=== PATIENT | male | born 1965 | race Two or more races ===

== ENCOUNTER 2017-05-13 16:54 | Emergency (ER) | payer SELFPAY ==
[2017-05-13 17:05] VITALS: BP 141/91
[2017-05-13] MEDS ORDERED: ONDANSETRON 4 MG TAB.RAPDIS PO ONE (17:52)
[2017-05-13] MEDS ORDERED: OXYCODONE-ACETAMINOPHEN 5-325 MG TABLET PO ONE (17:52)
--- NOTE | 2017-05-13 18:24 | RADIOLOGY REPORT (SQ) ---
EXAM DESCRIPTION: CT ABD/PELVIS NO ORAL OR IV COMPLETED DATE/TIME: 05/13/2017 6:06 pm REASON FOR STUDY: inguinal pain, L>R COMPARISON: None. TECHNIQUE: CT scan of the abdomen and pelvis performed without intravenous or oral contrast. Images reviewed with lung, soft tissue, and bone windows. Reconstructed coronal and sagittal MPR images revi ewed. All images stored on PACS. All CT scanners at this facility use dose modulation, iterative reconstruction, and/or weight based d osing when appropriate to reduce radiation dose to as low as reasonably achievable (ALARA). [facility]: Dose Right [facility]: CareDose [facility]: Dose Right [facility]: Teradose 4D [facility]: Smart Fluential RADIATION DOSE: CT Rad equipment meets quality standard of care and radiation dose reduction techniq ues were employed. CTDIvol: 11.3 mGy. DLP: 619 mGy-cm.mGy. LIMITATIONS: None. FINDINGS: LOWER CHEST: No significant findings. No nodules or infiltrates. NON-CONTRASTED LIVER, SPLEEN, ADRENALS: Evaluation limited by lack of IV contrast. No identified sign ificant masses. PANCREAS: No masses. No peripancreatic inflammatory changes. GALLBLADDER: No identified stones by CT criteria. No inflammatory changes to suggest cholecystitis. RIGHT KIDNEY AND URETER: No suspicious masses. Assessment limited by lack of IV contrast. No signif icant calcifications. No hydronephrosis or hydroureter. LEFT KIDNEY AND URETER: No suspicious masses. Assessment limited by lack of IV contrast. No signifi cant calcifications. No hydronephrosis or hydroureter. AORTA AND RETROPERITONEUM: No aneurysm. No retroperitoneal masses or adenopathy. BOWEL AND PERITONEAL CAVITY: Diverticuli in the ascending colon. No obvious masses or inflammatory c hanges. No free fluid. APPENDIX: Normal. PELVIS, BLADDER, AND ABDOMINAL WALL:No abnormal masses. No free fluid. Bladder normal. BONES: No significant findings. OTHER: No other significant finding. IMPRESSION: DIVERTICULI IN THE ASCENDING COLON. NO CT FINDINGS OF ACUTE DIVERTICULITIS. NO OTHER S IGNIFICANT OR ACUTE PROCESS IN THE ABDOMEN OR PELVIS. COMMENT: Quality ID # [id number]: Final reports with documentation of one or more dose reduction techniques (e.g., Automated exposure control, adjustment of the mA and/or kV according to patient size, use of iterative reconstruction technique) TECHNICAL DOCUMENTATION: JOB ID: [id number] [employer]- All Rights Reserved
--- NOTE | 2017-05-13 18:51 | ER Document Report ---
ED GI/ - General TRAVEL OUTSIDE OF THE [place] IN LAST 30 DAYS: No <JESSIE WINSTON - Last Filed: 05/13/17 18:51> <CODY MCDANIEL - Last Filed: 05/13/17 20:11> - General Chief Complaint: Abdominal Pain Stated Complaint: ABDOMINAL PAIN Time Seen by Provider: 05/13/17 17:52 Notes: Patient is a 51-year-old male who comes in complaining of groin pain. Patient states that the pain started on the right in the area of his inguinal canal and now started on the left. 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 States that it started while he was at work. Denies any back pain. Denies nausea or vomiting. States that it feels like there is a bulge. No history of inguinal hernia repair as a child. No fever. No difficulty urinating. (CODY MCDANIEL) - Related Data Allergies/Adverse Reactions: No Known Allergies Allergy (Unverified 05/13/17 16:58) Past Medical History - Social History Smoking Status: Current Some Day Smoker Chew tobacco use (# tins/day): No Frequency of alcohol use: Social Drug Abuse: None Patient has suicidal ideation: No Patient has homicidal ideation: No Renal/ Medical History: Denies: Hx Peritoneal Dialysis <JESSIE WINSTON - Last Filed: 05/13/17 18:51> - Social History Family History: Reviewed & Not Pertinent - Medical History Medical History: Negative <CODY MCDANIEL - Last Filed: 05/13/17 20:11> Review of Systems - Review of Systems Constitutional: No symptoms reported EENT: No symptoms reported Cardiovascular: No symptoms reported Respiratory: No symptoms reported Gastrointestinal: See HPI Genitourinary: No symptoms reported Musculoskeletal: No symptoms reported Skin: No symptoms reported Hematologic/Lymphatic: No symptoms reported Neurological/Psychological: No symptoms reported <CODY MCDANIEL - Last Filed: 05/13/17 20:11> Physical Exam - Vital signs Interpretation: Normal - General General appearance: Appears well, Alert - HEENT Head: Normocephalic, Atraumatic Eyes: Normal Pupils: PERRL - Respiratory Respiratory status: No respiratory distress Chest status: Nontender Breath sounds: Normal Chest palpation: Normal - Cardiovascular Rhythm: Regular Heart sounds: Normal auscultation Murmur: No - Abdominal Inspection: Normal Distension: No distension Bowel sounds: Normal Tenderness: Tender, Other - Bilateral inguinal hernia Organomegaly: No organomegaly - Genitourinary Inspection: Normal Tenderness: Nontender Cremasteric reflex: Normal Scrotum: Normal. No: Swelling - Back Back: Normal, Nontender - Extremities General upper extremity: Normal inspection, Nontender, Normal color, Normal ROM , Normal temperature General lower extremity: Normal inspection, Nontender, Normal color, Normal ROM , Normal temperature, Normal weight bearing. No: Tristen's sign - Neurological Neuro grossly intact: Yes Cognition: Normal Orientation: AAOx4 James Coma Scale Eye Opening: Spontaneous James Coma Scale Verbal: Oriented James Coma Scale Motor: Obeys Commands [place] Coma Scale Total: 15 Speech: Normal Motor strength normal: LUE, RUE, LLE, RLE Sensory: Normal - Psychological Associated symptoms: Normal affect, Normal mood - Skin Skin Temperature: Warm Skin Moisture: Dry Skin Color: Normal <CODY MCDANIEL - Last Filed: 05/13/17 20:11> - Vital signs Vitals: Temp Pulse Resp BP Pulse Ox 98.5 F 83 16 141/91 H 98 05/13/17 17:03 05/13/17 17:03 05/13/17 17:03 05/13/17 17:03 05/13/17 17:03 Course <JESSIE WINSTON - Last Filed: 05/13/17 18:51> - Diagnostic Test Radiology reviewed: Reports reviewed <CODY MCDANIEL - Last Filed: 05/13/17 20:11> - Re-evaluation Re-evalutation: 05/13/17 20:10 No evidence for incarceration on exam or CT. Patient will be discharged home with pain medications. Nurse. He is to follow-up with surgery and avoid straining. Recommend jockstrap/tight underwear for comfort. (CODY MCDNAIEL) - Vital Signs Vital signs: Temp Pulse Resp BP Pulse Ox 98.5 F 85 16 141/91 H 98 05/13/17 17:04 05/13/17 17:04 05/13/17 17:03 05/13/17 17:04 05/13/17 17:04 Discharge <JESSIE WINSTON - Last Filed: 05/13/17 18:51> <CODY MCDANIEL - Last Filed: 05/13/17 20:11> - Discharge Clinical Impression: Inguinal hernia bilateral, non-recurrent Qualifiers: Obstruction and gangrene presence: without obstruction or gangrene Recurrence: not specified as recurrent Qualified Code(s): K40.20 - Bilateral inguinal hernia , without obstruction or gangrene, not specified as recurrent Condition: Stable Disposition: HOME, SELF-CARE Instructions: Hernia ([facility]) Prescriptions: Docusate Sodium [Colace 100 mg Capsule] 100 mg PO BID #60 capsule Oxycodone HCl/Acetaminophen [Percocet 5-325 mg Tablet] 1 - 2 tab PO Q4H PRN #20 tablet PRN Reason: Forms: Return to Work Referrals: JASMINE RAMIREZ MD [ACTIVE STAFF] - Follow up in 3-5 days Scribe Attestation: 05/13/17 20:10 I personally performed the services described in the documentation, reviewed and edited the documentation which was dictated to the scribe in my presence, and it accurately records my words and actions. (CODY MCDANIEL)
== END 2017-05-13 19:04 | disposition home or self-care (01) ==
LOC: ER 16:54
DX: K40.20 Bilateral inguinal hernia, without obstruction or gangrene, not specified as recurrent (principal); R10.30 Lower abdominal pain, unspecified; F17.200 Nicotine dependence, unspecified, uncomplicated
CPT/HCPCS: 99284; 74176; S0119

== ENCOUNTER 2017-05-23 19:46 | Emergency (ER) | payer SELFPAY ==
[2017-05-23 19:57] VITALS: BP 158/80
--- NOTE | 2017-05-23 20:49 | ER Document Report ---
ED Medical Screen (RME) - General Chief Complaint: Groin Pain Stated Complaint: GROIN PAIN Time Seen by Provider: 05/23/17 20:47 Notes: Patient states he been told that he has a right inguinal mass. He states it is hurting almost daily now and he needs treatment. He states he is not having vomiting or diarrhea. He can eat. There is no problems with urine or stool. Exam in the triage area is inadequate to rule out incarceration of intra- abdominal contents. TRAVEL OUTSIDE OF THE [place] IN LAST 30 DAYS: No - Related Data Allergies/Adverse Reactions: No Known Allergies Allergy (Unverified 05/13/17 16:58) Past Medical History - Social History Chew tobacco use (# tins/day): No Frequency of alcohol use: Occasional Drug Abuse: None Renal/ Medical History: Reports: Hx Peritoneal Dialysis Physical Exam - Vital signs Vitals: Temp Pulse Resp BP Pulse Ox 98.6 F 72 18 158/80 H 98 05/23/17 19:56 05/23/17 19:56 05/23/17 19:56 05/23/17 19:56 05/23/17 19:56 Course - Vital Signs Vital signs: Temp Pulse Resp BP Pulse Ox 98.6 F 72 18 158/80 H 98 05/23/17 19:56 05/23/17 19:56 05/23/17 19:56 05/23/17 19:56 05/23/17 19:56
[2017-05-23 21:16] LABS: ABSOLUTE BASOPHILS # (AUTO) 0.1 10^3/uL (0.0-0.2); ABSOLUTE EOSINOPHILS # (AUTO) 0.2 10^3/uL (0.0-0.6); ABSOLUTE LYMPHOCYTES (AUTO) 4.6 10^3/uL (0.5-4.7); ABSOLUTE MONOCYTES (AUTO) 0.7 10^3/uL (0.1-1.4); ABSOLUTE NEUT (AUTO) 4.9 10^3/uL (1.7-8.2); BASOPHILS % (AUTO) 1.2 % (0-2); EOSINOPHILS % (AUTO) 1.6 % (0-6); HEMATOCRIT 44.7 % (37.9-51.0); HEMOGLOBIN 14.5 g/dL (13.5-17.0); LYMPHOCYTES % (AUTO) 44.1 % (13-45); MEAN CORPUSCULAR HEMOGLOBIN 23.6 pg (27.0-33.4); MEAN CORPUSCULAR HGB CONC 32.3 g/dL (32.0-36.0); MEAN CORPUSCULAR VOLUME 73 fl (80-97); MONOCYTES % (AUTO) 6.5 % (3-13); PLATELET COUNT 250 10^3/uL (150-450); RED BLOOD COUNT 6.12 10^6/uL (4.35-5.55); SEGMENTED NEUTROPHILS % (AUTO) 46.6 % (42-78); TOTAL CELLS COUNTED % (AUTO) 100 %; WHITE BLOOD COUNT 10.4 10^3/uL (4.0-10.5)
[2017-05-23] MEDS ORDERED: HYDROCODONE/ACETAMINOPHEN 5-325 MG (6 TAB/ER DISP) PO PRN (21:31)
--- NOTE | 2017-05-23 21:32 | ER Document Report ---
ED GI/ - General Chief Complaint: Groin Pain Stated Complaint: GROIN PAIN Time Seen by Provider: 05/23/17 20:47 Notes: Patient is a 51-year-old male that comes emergency department for chief complaint of pain to his right inguinal hernia. He states that he has pain in the area almost every day sometimes it comes out and is painful, it is not state out and he is able to push back in. He denies vomiting, fever, he has no difficulty with eating, he denies difficulty with urination or defecation. He states he was evaluated and had a CAT scan but he lost his referral and he needs directions. He smokes intermittently. TRAVEL OUTSIDE OF THE [place] IN LAST 30 DAYS: No - Related Data Allergies/Adverse Reactions: No Known Allergies Allergy (Unverified 05/13/17 16:58) Past Medical History - General Information source: Patient - Social History Smoking Status: Current Some Day Smoker Chew tobacco use (# tins/day): No Smoking Education Provided: Yes - <3 min Frequency of alcohol use: Occasional Drug Abuse: None Lives with: Family Family History: Reviewed & Not Pertinent Patient has suicidal ideation: No Patient has homicidal ideation: No Renal/ Medical History: Reports: Hx Peritoneal Dialysis Surgical Hx: Negative - Immunizations Immunizations up to date: Yes Hx Diphtheria, Pertussis, Tetanus Vaccination: Yes Review of Systems - Review of Systems Constitutional: No symptoms reported EENT: No symptoms reported Cardiovascular: No symptoms reported Respiratory: No symptoms reported Gastrointestinal: See HPI Genitourinary: No symptoms reported Male Genitourinary: No symptoms reported Musculoskeletal: No symptoms reported Skin: No symptoms reported Hematologic/Lymphatic: No symptoms reported Neurological/Psychological: No symptoms reported Physical Exam - Vital signs Vitals: Temp Pulse Resp BP Pulse Ox 98.6 F 72 18 158/80 H 98 05/23/17 19:56 05/23/17 19:56 05/23/17 19:56 05/23/17 19:56 05/23/17 19:56 Interpretation: Normal - General General appearance: Appears well, Alert In distress: None - HEENT Head: Normocephalic, Atraumatic Eyes: Normal Pupils: PERRL - Respiratory Respiratory status: No respiratory distress Chest status: Nontender Breath sounds: Normal Chest palpation: Normal - Cardiovascular Rhythm: Regular Heart sounds: Normal auscultation Murmur: No - Abdominal Inspection: Normal Distension: No distension Bowel sounds: Normal Tenderness: Tender - Minimally tender in the right inguinal region, questional area of hernia but the area is soft, no evidence of herniated bowel or incarcerated hernia, remaining abdomen unremarkable Organomegaly: No organomegaly - Back Back: Normal, Nontender - Extremities General upper extremity: Normal inspection, Nontender, Normal color, Normal ROM , Normal temperature General lower extremity: Normal inspection, Nontender, Normal color, Normal ROM , Normal temperature, Normal weight bearing. No: Tristen's sign - Neurological Neuro grossly intact: Yes Cognition: Normal Orientation: AAOx4 James Coma Scale Eye Opening: Spontaneous [place] Coma Scale Verbal: Oriented [place] Coma Scale Motor: Obeys Commands James Coma Scale Total: 15 Speech: Normal Motor strength normal: LUE, RUE, LLE, RLE Sensory: Normal - Psychological Associated symptoms: Normal affect, Normal mood - Skin Skin Temperature: Warm Skin Moisture: Dry Skin Color: Normal Course - Re-evaluation Re-evalutation: Patient with minimal tenderness in the area of the right inguinal hernia. No erythema, no evidence of incarcerated hernia on examination. Patient is well- appearing on exam. Patient states it is coming in and out intermittently. He states this is painful. He requests a referral. This was again given to him. I discussed the possibility of having a surgeon evaluate him here because of his worsening ongoing symptoms, patient declines, he states he wants to be seen in the office. I did provide him with stool softeners and pain management until he is seen, I discussed and strict detail return precautions with signs of incarceration. CBC unremarkable, remaining labs canceled because patient is requesting to leave and based on him having no symptoms now along with an unremarkable evaluation I did not feel it was indicated. Patient stable at time of discharge. Patient states satisfaction and gratefulness for care. - Vital Signs Vital signs: Temp Pulse Resp BP Pulse Ox 98.6 F 72 18 158/80 H 98 05/23/17 19:56 05/23/17 19:56 05/23/17 19:56 05/23/17 19:56 05/23/17 19:56 - Laboratory Result Diagrams: 05/23/17 21:01 05/23/17 21:01 Laboratory results interpreted by me: 05/23/17 21:01 RBC 6.12 H MCV 73 L MCH 23.6 L RDW 15.0 H Discharge - Discharge Clinical Impression: Right inguinal hernia Condition: Stable Disposition: HOME, SELF-CARE Instructions: Oral Narcotic Medication ([facility]) Additional Instructions: Your examination is consistent with an inguinal hernia. This needs to be repaired. Take medications as prescribed, please call the listed referral for [facility] tomorrow to have a close follow-up arranged. Return immediately if you worsen including if the hernia comes out and you cannot push it back in, you began vomiting, you start having severe pain or redness to the area, or for any other concerning symptoms. Prescriptions: Docusate Sodium [Colace 100 mg Capsule] 100 mg PO ASDIR PRN #30 capsule PRN Reason: Hydrocodone/Acetaminophen [Adair 5-325 mg Tablet] 1 - 2 tab PO ASDIR #15 tablet Forms: Elevated Blood Pressure Referrals: [facility] [Provider Group] - Follow up tomorrow
== END 2017-05-23 22:14 | disposition home or self-care (01) ==
LOC: ER 19:46
DX: K40.90 Unilateral inguinal hernia, without obstruction or gangrene, not specified as recurrent (principal); R10.30 Lower abdominal pain, unspecified; F17.200 Nicotine dependence, unspecified, uncomplicated
CPT/HCPCS: 36415; 85025; 99283

== ENCOUNTER 2017-06-08 18:06 | Emergency (ER) | payer SELFPAY ==
[2017-06-08] MEDS ORDERED: MORPHINE SULFATE 10 MG/ML INJ IV ONE (18:39)
--- NOTE | 2017-06-08 18:40 | ER Document Report ---
ED Medical Screen (RME) - General Chief Complaint: Groin Pain Stated Complaint: GROIN PAIN Time Seen by Provider: 06/08/17 18:39 Notes: tender left inguinal mass TRAVEL OUTSIDE OF THE [place] IN LAST 30 DAYS: No - Related Data Allergies/Adverse Reactions: No Known Allergies Allergy (Unverified 05/13/17 16:58) Past Medical History - Social History Frequency of alcohol use: None Drug Abuse: None Renal/ Medical History: Denies: Hx Peritoneal Dialysis - Immunizations Immunizations up to date: Yes Hx Diphtheria, Pertussis, Tetanus Vaccination: Yes Physical Exam - Vital signs Vitals: Temp Pulse Resp BP Pulse Ox 97.8 F 82 17 129/74 H 97 06/08/17 18:18 06/08/17 18:18 06/08/17 18:18 06/08/17 18:18 06/08/17 18:18 Course - Vital Signs Vital signs: Temp Pulse Resp BP Pulse Ox 97.8 F 82 17 129/74 H 97 06/08/17 18:18 06/08/17 18:18 06/08/17 18:18 06/08/17 18:18 06/08/17 18:18
[2017-06-08 19:33] LABS: APPEARANCE,URINE SLIGHTLY-CLOUDY; BILIRUBIN,URINE NEGATIVE (NEGATIVE); COLOR,URINE YELLOW; GLUCOSE, URINE NEGATIVE (NEGATIVE); KETONES,URINE NEGATIVE (NEGATIVE); LEUKOCYTE ESTERASE,URINE NEGATIVE (NEGATIVE); NITRITE,URINE NEGATIVE (NEGATIVE); PROTEIN,URINE NEGATIVE (NEGATIVE); URINE SPECIFIC GRAVITY 1.026
[2017-06-08 19:45] LABS: ABSOLUTE BASOPHILS # (AUTO) 0.1 10^3/uL (0.0-0.2); ABSOLUTE EOSINOPHILS # (AUTO) 0.3 10^3/uL (0.0-0.6); ABSOLUTE LYMPHOCYTES (AUTO) 4.2 10^3/uL (0.5-4.7); ABSOLUTE MONOCYTES (AUTO) 0.6 10^3/uL (0.1-1.4); ABSOLUTE NEUT (AUTO) 4.8 10^3/uL (1.7-8.2); BASOPHILS % (AUTO) 1.3 % (0-2); EOSINOPHILS % (AUTO) 3.4 % (0-6); HEMATOCRIT 43.6 % (37.9-51.0); LYMPHOCYTES % (AUTO) 41.6 % (13-45); MEAN CORPUSCULAR HEMOGLOBIN 23.4 pg (27.0-33.4); MEAN CORPUSCULAR HGB CONC 32.1 g/dL (32.0-36.0); MEAN CORPUSCULAR VOLUME 73 fl (80-97); MONOCYTES % (AUTO) 6.1 % (3-13); PLATELET COUNT 238 10^3/uL (150-450); RED BLOOD COUNT 5.98 10^6/uL (4.35-5.55); SEGMENTED NEUTROPHILS % (AUTO) 47.6 % (42-78); TOTAL CELLS COUNTED % (AUTO) 100 %
[2017-06-08] MEDS ORDERED: FENTANYL CITRATE INJ/PF 100 MCG/2 ML AMPUL IV ONE (19:59)
[2017-06-08 20:01] LABS: ALANINE AMINOTRANSFERASE 30 U/L (21-72); ALBUMIN 4.7 g/dL (3.5-5.0); ALKALINE PHOSPHATASE 69 U/L (38-126); ANION GAP 11 (5-19); ASPARTATE AMINO TRANSFERASE 29 U/L (17-59); BILIRUBIN,DIRECT 0.3 mg/dL (0.0-0.4); BILIRUBIN,TOTAL 0.3 mg/dL (0.2-1.3); BLOOD UREA NITROGEN 16 mg/dL (7-20); CALCIUM 9.7 mg/dL (8.4-10.2); CARBON DIOXIDE 24 mmol/L (22-30); CHLORIDE 105 mmol/L (98-107); GLUCOSE 79 mg/dL (75-110); POTASSIUM 4.6 mmol/L (3.6-5.0); SODIUM 140.1 mmol/L (137-145); TOTAL PROTEIN 7.4 g/dL (6.3-8.2)
--- NOTE | 2017-06-08 20:01 | ER Document Report ---
ED GI/ - General Chief Complaint: Groin Pain Stated Complaint: GROIN PAIN Time Seen by Provider: 06/08/17 18:39 Notes: Patient is a 51-year-old male comes emergency department for chief complaint of inguinal hernia pain. He states that he was at work and the hernia popped out and became painful and he has not been able to get back in. He denies vomiting. Patient was referred to surgical clinic previously, he states at this time he cannot afford to get it fixed. He smokes intermittently. He denies any other surgeries. He denies any daily medications. TRAVEL OUTSIDE OF THE [place] IN LAST 30 DAYS: No - Related Data Allergies/Adverse Reactions: No Known Allergies Allergy (Unverified 05/13/17 16:58) Past Medical History - General Information source: Patient - Social History Smoking Status: Current Every Day Smoker Frequency of alcohol use: None Drug Abuse: None Lives with: Family Family History: Reviewed & Not Pertinent Patient has suicidal ideation: No Patient has homicidal ideation: No - Past Medical History Cardiac Medical History: Reports: Hx Hypertension Renal/ Medical History: Denies: Hx Peritoneal Dialysis - Immunizations Immunizations up to date: Yes Hx Diphtheria, Pertussis, Tetanus Vaccination: Yes Review of Systems - Review of Systems Constitutional: No symptoms reported EENT: No symptoms reported Cardiovascular: No symptoms reported Respiratory: No symptoms reported Gastrointestinal: See HPI Genitourinary: No symptoms reported Male Genitourinary: No symptoms reported Musculoskeletal: No symptoms reported Skin: No symptoms reported Hematologic/Lymphatic: No symptoms reported Neurological/Psychological: No symptoms reported Physical Exam - Vital signs Vitals: Temp Pulse Resp BP Pulse Ox 97.8 F 82 17 129/74 H 97 06/08/17 18:18 06/08/17 18:18 06/08/17 18:18 06/08/17 18:18 06/08/17 18:18 Interpretation: Normal - General General appearance: Appears well, Alert In distress: None - HEENT Head: Normocephalic, Atraumatic Eyes: Normal Pupils: PERRL - Respiratory Respiratory status: No respiratory distress Chest status: Nontender Breath sounds: Normal Chest palpation: Normal - Cardiovascular Rhythm: Regular Heart sounds: Normal auscultation Murmur: No - Abdominal Inspection: Normal Distension: No distension Bowel sounds: Normal Tenderness: Tender - Tenderness over the left inguinal hernia which is palpable on examination, no erythema or hardness to the area. Remaining abdomen is completely benign Organomegaly: No organomegaly - Back Back: Normal, Nontender. 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 Moderate tenderness to the area. No erythema or hardness to the area. Patient given small dose of fentanyl, after this area was easily reduced. Lab workup unremarkable. Area did not come back out. Patient appears to have bilateral inguinal hernias. He states he was already evaluated by the surgeon and the surgeon told him it was not bad enough at this time to do the amount of surgery that would keep him out a while. I offered to have him evaluated by a surgeon here, he declined. He states he is probably going to look for a second opinion but he is going home now. Discussed return precautions in detail, patient states understanding and agreement. - Vital Signs Vital signs: Temp Pulse Resp BP Pulse Ox 97.3 F 64 14 123/83 97 06/08/17 22:27 06/08/17 22:27 06/08/17 22:27 06/08/17 22:27 06/08/17 22:27 - Laboratory Result Diagrams: 06/08/17 19:30 06/08/17 19:30 Laboratory results interpreted by me: 06/08/17 06/08/17 19:01 19:30 RBC 5.98 H MCV 73 L MCH 23.4 L RDW 15.0 H Urine Urobilinogen 4.0 H Discharge - Discharge Clinical Impression: Inguinal hernia Qualifiers: Obstruction and gangrene presence: without obstruction or gangrene Laterality: bilateral Recurrence: recurrent Qualified Code(s): K40.21 - Bilateral inguinal hernia, without obstruction or gangrene, recurrent Condition: Stable Disposition: HOME, SELF-CARE Additional Instructions: The hernia is reducible tonight. Because of ongoing symptoms please follow back up with the surgical clinic, this likely needs surgery. Stop smoking. Smoking weakens the tissue in your abdominal wall and makes hernias worse. Return if you worsen including if the area comes out and you cannot push it back in, the area becomes very tender, you begin to vomit, or any other concerning symptoms develop.
[2017-06-08] MEDS ORDERED: HYDROCODONE/ACETAMINOPHEN 5-325 MG (6 TAB/ER DISP) PO PRN (21:31)
[2017-06-08 22:28] VITALS: BP 123/83
== END 2017-06-08 22:28 | disposition home or self-care (01) ==
LOC: ER 18:06
DX: K40.21 Bilateral inguinal hernia, without obstruction or gangrene, recurrent (principal); I10 Essential (primary) hypertension; F17.200 Nicotine dependence, unspecified, uncomplicated
CPT/HCPCS: 99283; 96374; 96375; 36415; 85025; 80053; 81001; J3010; J2270

== ENCOUNTER 2017-06-29 16:17 | Emergency (ER) | payer SELFPAY ==
[2017-06-29 16:23] VITALS: BP 146/89
--- NOTE | 2017-06-29 17:05 | ER Document Report ---
ED General - General Chief Complaint: Groin Pain Stated Complaint: ABDOMINAL PAIN Time Seen by Provider: 06/29/17 16:51 Mode of Arrival: Ambulatory Information source: Patient Notes: Patient has a history of a bilateral inguinal hernia. He presents now with inguinal hernia pain. Worse on the left than the right. It is worse with exertion and better with rest. The pain does radiate into his testicles bilaterally and into his lower abdomen. No vomiting or diarrhea. He is able to eat normally. The pain is intermittent. It is an aching sensation. No problems with urination or bowel movements. The pain is moderate and intermittent. Patient states he does not wish to have any extensive testing he just wants a referral to a surgeon and some pain medication. He states he needs to get back to work. TRAVEL OUTSIDE OF THE [place] IN LAST 30 DAYS: No - Related Data Allergies/Adverse Reactions: No Known Allergies Allergy (Verified 06/29/17 16:18) Past Medical History - General Information source: Patient - Social History Smoking Status: Current Some Day Smoker Chew tobacco use (# tins/day): No Frequency of alcohol use: None Family History: Reviewed & Not Pertinent Patient has suicidal ideation: No Patient has homicidal ideation: No - Past Medical History Cardiac Medical History: Reports: Hx Hypertension Renal/ Medical History: Denies: Hx Peritoneal Dialysis - Immunizations Immunizations up to date: Yes Hx Diphtheria, Pertussis, Tetanus Vaccination: Yes Review of Systems - Review of Systems Constitutional: denies: Chills, Fever Cardiovascular: denies: Chest pain, Palpitations Respiratory: denies: Cough, Short of breath Gastrointestinal: denies: Diarrhea, Vomiting Physical Exam - Vital signs Vitals: Temp Pulse Resp BP Pulse Ox 98.3 F 70 20 146/89 H 97 06/29/17 16:22 06/29/17 16:22 06/29/17 16:22 06/29/17 16:22 06/29/17 16:22 Interpretation: Normal - General General appearance: Appears well, Alert - HEENT Head: Normocephalic, Atraumatic Eyes: Normal Pupils: PERRL - Respiratory Respiratory status: No respiratory distress Chest status: Nontender Breath sounds: Normal Chest palpation: Normal - Cardiovascular Rhythm: Regular Heart sounds: Normal auscultation Murmur: No - Abdominal Inspection: Normal Distension: No distension Bowel sounds: Normal Tenderness: Other - Patient has bilateral inguinal hernia slightly greater on the left. It does appear to extend into the scrotal area. It is minimally tender but reducible. There is no signs of incarceration. It is not firm or indurated. It is not warm or erythematous. Organomegaly: No organomegaly - Back Back: Normal, Nontender - Extremities General upper extremity: Normal inspection, Nontender, Normal color, Normal ROM , Normal temperature General lower extremity: Normal inspection, Nontender, Normal color, Normal ROM , Normal temperature, Normal weight bearing. No: Tristen's sign - Neurological Neuro grossly intact: Yes Cognition: Normal Orientation: AAOx4 [place] Coma Scale Eye Opening: Spontaneous James Coma Scale Verbal: Oriented [place] Coma Scale Motor: Obeys Commands James Coma Scale Total: 15 Speech: Normal Motor strength normal: LUE, RUE, LLE, RLE Sensory: Normal - Psychological Associated symptoms: Normal affect, Normal mood - Skin Skin Temperature: Warm Skin Moisture: Dry Skin Color: Normal Course - Vital Signs Vital signs: Temp Pulse Resp BP Pulse Ox 98.3 F 70 20 146/89 H 97 06/29/17 16:22 06/29/17 16:22 06/29/17 16:22 06/29/17 16:22 06/29/17 16:22 Discharge - Discharge Clinical Impression: Bilateral inguinal hernia Qualifiers: Obstruction and gangrene presence: without obstruction or gangrene Recurrence: recurrent Qualified Code(s): K40.21 - Bilateral inguinal hernia, without obstruction or gangrene, recurrent Condition: Stable Instructions: Hernia ([facility]) Additional Instructions: Please call Dr. Cabrera as soon as possible to arrange follow-up Prescriptions: Hydrocodone/Acetaminophen [[place] 5-325 mg Tablet] 1 tab PO Q6 PRN 4 Days #14 tablet PRN Reason: Forms: Return to Work Referrals: OFE CABRERA MD [ACTIVE STAFF] - Follow up tomorrow
== END 2017-06-29 17:12 | disposition home or self-care (01) ==
LOC: ER 16:17
DX: K40.21 Bilateral inguinal hernia, without obstruction or gangrene, recurrent (principal); I10 Essential (primary) hypertension; F17.200 Nicotine dependence, unspecified, uncomplicated
CPT/HCPCS: 99283

== ENCOUNTER 2017-09-15 18:06 | Emergency (ER) | payer SELFPAY ==
[2017-09-15] MEDS ORDERED: DIAZEPAM 5 MG TABLET PO ONE (19:04)
[2017-09-15] MEDS ORDERED: FENTANYL CITRATE INJ/PF 100 MCG/2 ML AMPUL IV ONE (19:07)
--- NOTE | 2017-09-15 19:07 | ER Document Report ---
ED Medical Screen (RME) - General Chief Complaint: Groin Pain Stated Complaint: ABDOMINAL PAIN Time Seen by Provider: 09/15/17 18:57 Notes: RAPID MEDICAL EVALUATION DISCLOSURE I have seen this patient as part of a Rapid Medical Evaluation and, if applicable, placed any initially appropriate orders. The patient will be seen and fully evaluated, including a full history and physical exam, by a provider ( in Main ED or Fast Track) when a room becomes available. 52-year-old male PMH right inguinal hernia here with complaints of right inguinal hernia pain. States that he noticed the mass 3 hours ago. Cannot remember if he sneezed or coughed or strained to cause this recurrence. He states that this happens and "comes and goes". No vomiting. Was able to eat chicken just before arrival here. EXAM Right inguinal mass consistent with hernia TRAVEL OUTSIDE OF THE [place] IN LAST 30 DAYS: No - Related Data Allergies/Adverse Reactions: No Known Allergies Allergy (Verified 09/15/17 18:09) Past Medical History - Social History Chew tobacco use (# tins/day): No Frequency of alcohol use: None Drug Abuse: None - Past Medical History Cardiac Medical History: Reports: Hx Hypertension Renal/ Medical History: Denies: Hx Peritoneal Dialysis GI Medical History: Reports: Hx Hiatal Hernia Past Surgical History: Reports: Hx Abdominal Surgery - Immunizations Immunizations up to date: Yes Hx Diphtheria, Pertussis, Tetanus Vaccination: Yes Physical Exam - Vital signs Vitals: Temp Pulse Resp BP Pulse Ox 98.6 F 80 18 132/72 H 98 09/15/17 18:19 09/15/17 18:19 09/15/17 18:19 09/15/17 18:19 09/15/17 18:19 Course - Vital Signs Vital signs: Temp Pulse Resp BP Pulse Ox 98.6 F 80 18 132/72 H 98 09/15/17 18:19 09/15/17 18:19 09/15/17 18:19 09/15/17 18:19 09/15/17 18:19
--- NOTE | 2017-09-15 19:45 | ER Document Report ---
ED General - General Chief Complaint: Groin Pain Stated Complaint: ABDOMINAL PAIN Time Seen by Provider: 09/15/17 18:57 Notes: Patient is a 52-year-old male who presents emergency department with a complaint of right inguinal soreness. Patient states that he recently had a left inguinal laparoscopic hernia repair about a month ago and was cleared to go back to work on Tuesday. Patient states that he was at work today and he felt soreness in his right inguinal area where he has had issues with hernias in the past. He denies any nausea, vomiting, diarrhea or constipation. Denies any pyuria, testicular swelling. Last ate approximately an hour and half prior to arrival TRAVEL OUTSIDE OF THE [place] IN LAST 30 DAYS: No - Related Data Allergies/Adverse Reactions: No Known Allergies Allergy (Verified 09/15/17 18:09) Past Medical History - Social History Smoking Status: Current Every Day Smoker Chew tobacco use (# tins/day): No Frequency of alcohol use: None Drug Abuse: None Family History: Reviewed & Not Pertinent Patient has suicidal ideation: No Patient has homicidal ideation: No - Past Medical History Cardiac Medical History: Reports: Hx Hypertension Renal/ Medical History: Denies: Hx Peritoneal Dialysis GI Medical History: Reports: Hx Hiatal Hernia Past Surgical History: Reports: Hx Abdominal Surgery - Immunizations Immunizations up to date: Yes Hx Diphtheria, Pertussis, Tetanus Vaccination: Yes Review of Systems - Review of Systems Constitutional: No symptoms reported Cardiovascular: No symptoms reported Respiratory: No symptoms reported Gastrointestinal: No symptoms reported Genitourinary: No symptoms reported Male Genitourinary: See HPI Musculoskeletal: No symptoms reported -: Yes All other systems reviewed and negative Physical Exam - Vital signs Vitals: Temp Pulse Resp BP Pulse Ox 98.6 F 80 18 132/72 H 98 09/15/17 18:19 09/15/17 18:19 09/15/17 18:19 09/15/17 18:19 09/15/17 18:19 - Notes Notes: PHYSICAL EXAM GENERAL: Alert, interacts well. HEAD: Normocephalic, atraumatic. LUNGS: Clear to auscultation bilaterally, no wheezes, rales, or rhonchi. No respiratory distress. HEART: Regular rate and rhythm. No murmurs, gallops, or rubs. ABDOMEN: Soft, nondistended, nontender. No guarding, rebound, or rigidity.. Bowel sounds present in all 4 quadrants. Male : tenderness over the right inguinal canal but no visible bulging, erythema, swelling. No palpable hernia. no evidence of incarceration NEUROLOGICAL: Alert and oriented x4. Normal speech. PSYCH: Normal affect, normal mood. SKIN: Warm, dry, normal turgor. No rashes or lesions noted. Healing periumbilical hernia incision without any palpable hernia, induration or erythema Course - Re-evaluation Re-evalutation: 09/15/17 21:55 Patient does not appear to be in any distress, has had no vomiting, If he had bowel in his hernia previous it self reduced. Moderate tenderness to the area. No erythema or hardness to the area. Patient given small dose of fentanyl from triage and resting comfortably. CT without evidence of bowel. He states he was already evaluated by the surgeon and is due to followup in November. I offered to have him evaluated by a surgeon here, he declined. He states he will follow up in clinic. Discussed return precautions in detail, patient states understanding and agreement. - Vital Signs Vital signs: Temp Pulse Resp BP Pulse Ox 98.6 F 80 18 132/72 H 98 09/15/17 18:19 09/15/17 18:19 09/15/17 18:19 09/15/17 18:19 09/15/17 18:19 - Diagnostic Test Radiology reviewed: Reports reviewed Discharge - Discharge Clinical Impression: Hernia Condition: Good Disposition: HOME, SELF-CARE Instructions: [facility] ([facility] Prescriptions: Docusate Sodium [Colace] 100 mg PO BID #30 capsule Referrals: DEONNA PEDROZA MD [MIGUEL WALLER] - Follow up tomorrow
--- NOTE | 2017-09-15 21:36 | RADIOLOGY REPORT (SQ) ---
EXAM DESCRIPTION: U/S NON-OB PELVIS LTD W/O DOP COMPLETED DATE/TIME: 09/15/2017 8:58 pm REASON FOR STUDY: right inguinal pain, h/o inguinal hernia COMPARISON: None. TECHNIQUE: Dynamic and static grayscale images acquired of the pelvis via transabdominal approach an d recorded on PACS. Additional selected color Doppler and spectral images recorded. LIMITATIONS: None. FINDINGS: Sonographic imaging shows no abnormal fluid collections or masses. Bilateral inguinal her nias are suggested. There is no evidence of bowel loop within the hernia. IMPRESSION: Inguinal hernias with no evidence of bowel incarceration PE TECHNICAL DOCUMENTATION: JOB ID: [id number] [employer]- All Rights Reserved Reading location - IP/workstation name: [email or web address]
--- NOTE | 2017-09-15 21:41 | RADIOLOGY REPORT (SQ) ---
EXAM DESCRIPTION: CT PELVIS WITHOUT COMPLETED DATE/TIME: 09/15/2017 9:24 pm REASON FOR STUDY: right inguinal tenderness, pain COMPARISON: None. TECHNIQUE: CT scan of the pelvis performed without intravenous or oral contrast. Images reviewed wi th soft tissue and bone windows. Reconstructed coronal and sagittal MPR images reviewed. All images stored on PACS. All CT scanners at this facility use dose modulation, iterative reconstruction, and/or weight based d osing when appropriate to reduce radiation dose to as low as reasonably achievable (ALARA). [facility]: Dose Right [facility]: CareDose [facility]: Dose Right [facility]: Teradose 4D [facility]: Smart [employer] RADIATION DOSE: CT Rad equipment meets quality standard of care and radiation dose reduction techniq ues were employed. CTDIvol: 11.2 - 14.5 mGy. DLP: 918 mGy-cm. mGy. LIMITATIONS: None. FINDINGS: PELVIC BONES: No significant abnormality. VISUALIZED SPINE: Mild degenerative disc changes at L5-S1. HIP(S): No acute fracture or dislocation. No worrisome bone lesions. PELVIC SOFT TISSUES: No significant findings. EXTRAPELVIC SOFT TISSUES: Bilateral inguinal hernias containing only fat and vessels. OTHER: No other significant finding. IMPRESSION: Bilateral inguinal hernias containing only fat and vessels. TECHNICAL DOCUMENTATION: JOB ID: [id number] Quality ID # [id number]: Final reports with documentation of one or more dose reduction techniques (e.g., Au tomated exposure control, adjustment of the mA and/or kV according to patient size, use of iterative reconstruction technique) 2010 [employer]- All Rights Reserved Reading location - IP/workstation name: [email or web address]
[2017-09-15] MEDS ORDERED: HYDROCODONE/ACETAMINOPHEN 5-325 MG (6 TAB/ER DISP) PO PRN (21:59)
[2017-09-15 22:16] VITALS: BP 130/85
== END 2017-09-15 22:16 | disposition home or self-care (01) ==
LOC: ER 18:06
DX: K46.9 Unspecified abdominal hernia without obstruction or gangrene (principal); R10.30 Lower abdominal pain, unspecified; F17.200 Nicotine dependence, unspecified, uncomplicated; I10 Essential (primary) hypertension
CPT/HCPCS: 99284; 96374; 76857; 72192; J3010